=== PATIENT | female | born 1960 | race Caucasian/White ===

== ENCOUNTER 2021-11-04 05:16 | Day surgery (SDCO) | payer OTHER ==
[~2021-11-04] VITALS: Ht 157.5 cm; Wt 85.7 kg
[2021-11-04 06:20] LABS: BASOPHIL 0.3 % (0-2); EOSINOPHIL 0 % (0-5); HCT 43.8 % (37.0-47.0); HGB 14.1 g/dl (12.5-16.0); LYMPHOCYTE 28.7 % (15-48); MCH 29.6 pg (25.0-31.0); MCHC 32.2 g/dL (32.0-36.0); MPV 11.2 fL (6.0-9.5); NEUTROPHIL 59.7 % (41-80); NRBC 0; PLT 171 K/uL (150-400); RBC 4.76 M/uL (4.20-5.40); RDW 14.3 % (11.5-14.0); WBC 3.6 K/uL (4.0-10.5)
[2021-11-04 06:47] LABS: INFLUENZA A NAA NEGATIVE (NEGATIVE)
[2021-11-04 06:54] LABS: CORONAVIRUS 2019 SARS-COV-2 POSITIVE (NEGATIVE)
[2021-11-04 08:26] LABS: ALBUMIN 2.6 g/dL (3.4-5.0); BILIRUBIN - TOTAL 0.2 mg/dL (0.2-1.0); BUN/CREAT RATIO (CALC) 4.2 RATIO; CREATININE 1.67 mg/dL (0.51-0.95); POTASSIUM 3.7 mmol/L (3.5-5.1); TOTAL PROTEIN 6.6 g/dL (6.4-8.2)
[2021-11-04] MEDS ORDERED: IMITREX100 MG PO (14:28)
[2021-11-04] MEDS ORDERED: LOPRESSOR50 MG PO (14:29)
[2021-11-04] MEDS ORDERED: COZAAR100 MG PO (14:30)
[2021-11-05 06:41] LABS: BASOPHIL 0.3 % (0-2); EOSINOPHIL 0 % (0-5); HCT 37.4 % (37.0-47.0); HGB 11.9 g/dl (12.5-16.0); LYMPHOCYTE 38.9 % (15-48); MCH 29.3 pg (25.0-31.0); MCHC 31.8 g/dL (32.0-36.0); MCV 92.1 fL (78.0-100.0); MONOCYTE 16.3 % (0-12); MPV 10.9 fL (6.0-9.5); NEUTROPHIL 44.2 % (41-80); NRBC 0; PLT 141 K/uL (150-400); RBC 4.06 M/uL (4.20-5.40); RDW 14.3 % (11.5-14.0)
[2021-11-05 07:02] LABS: BUN/CREAT RATIO (CALC) 8.9 RATIO; C-REACTIVE PROTEIN 3.1 mg/dL (<=0.90); CREATININE 0.79 mg/dL (0.51-0.95); POTASSIUM 3.7 mmol/L (3.5-5.1)
[2021-11-05] MEDS ORDERED: ZINC SULFATE50 MG PO (12:24)
[2021-11-05] MEDS ORDERED: ONDANSETRON ODT4 MG PO (12:24)
[2021-11-05] MEDS ORDERED: ASCORBIC ACID500 MG PO (12:24)
[2021-11-05] MEDS ORDERED: DEXAMETHASONE 2M2 MG PO (12:24)
[2021-11-05] MEDS ORDERED: ROBITUSSIN DM10 ML PO (12:24)
[2021-11-05] MEDS ORDERED: VITAMIN D325 MC1 PO (12:24)
--- NOTE | 2021-11-05 13:44 | NUR ---
PER YARELIS, NURSE PT WILL REQUIRE O2 AT 2L. FAXED INFORAMTION TO [facility] FOR OXYGEN. ADVISED YARELIS, THAT [facility] WILL DELIVER O2 PORTABLE.
== END 2021-11-05 14:26 | disposition home or self-care (01) ==
LOC: FER 05:16 → FMS 09:47
PROVIDERS: Emergency Medicine; ADMIT Allergy & Immunology Allergy
DX: U07.1 COVID-19 (principal); J12.82 Pneumonia due to coronavirus disease 2019; I10 Essential (primary) hypertension; N17.9 Acute kidney failure, unspecified; J96.01 Acute respiratory failure with hypoxia
CPT/HCPCS: 36415; 36600; 71250; 80048; 80053; 82803; 83880; 84484; 85025; 85379; 86140; 93005; 94640; C9399; G0378; J1100; J1650; J2405; J7030; J7050; J7120; U0002